=== PATIENT | male | born 1955 | race Caucasian/White ===

== ENCOUNTER 2018-05-28 19:32 | Emergency (ER) | payer OTHER ==
[2018-05-28 21:22] VITALS: BP 155/82; PULSE 70; RESP 14; O2SAT 99
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
--- NOTE | 2018-05-29 12:51 | RAD ---
Date of service: 05/28/2018 PROCEDURE: Cervical Spine Radiographs. HISTORY: Pain. COMPARISON: None available. FINDINGS: Straightening of the normal cervical lordosis may be related to muscle spasm or positioning. Multilevel degenerative changes with marked intervertebral disc space narrowing evident at C5-C6. Dens tip partially obscured. No acute displaced fracture identified. No prevertebral soft tissue swelling. Vascular calcifications. IMPRESSION: Straightening of the normal cervical lordosis may be related to muscle spasm or positioning. Multilevel degenerative changes with marked intervertebral disc space narrowing evident at C5-C6. Dens tip partially obscured. No acute displaced fracture identified.
== END 2018-05-28 22:58 | disposition home or self-care (01) ==
LOC: C.ER 19:32
DX: S13.9XXA Sprain of joints and ligaments of unspecified parts of neck, initial encounter (principal); S39.012A Strain of muscle, fascia and tendon of lower back, initial encounter; V43.62XA Car passenger injured in collision with other type car in traffic accident, initial encounter; E11.9 Type 2 diabetes mellitus without complications; I10 Essential (primary) hypertension